=== PATIENT | male | born 1960 | race Caucasian/White ===

== ENCOUNTER 2018-04-28 04:25 | Emergency (ER) | payer BC ==
[~2018-04-28] VITALS: Ht 167.6 cm; Wt 86.4 kg
[2018-04-28 04:29] VITALS: BP 182/90
[2018-04-28] MEDS ORDERED: ACID REFLUX (04:51)
[2018-04-28 05:02] LABS: BASO # 0.1 (0.0-0.2); EOS # 0.2 (0.0-0.7); EOS % 2.9 % (0-4.0); GRAN # 4.4 (1.4-6.5); GRAN % 60.2 % (42.2-75.2); HEMATOCRIT 41.9 % (42.0-52.0); HEMOGLOBIN 14.1 g/dl (13.5-18.0); LYMPH % 27.1 % (20.0-51.0); MEAN CELL VOLUME 86 fl (80.0-100.0); MEAN CORPUSCULAR HEMOGLOBIN 29 pg (27.0-31.0); MEAN CORPUSCULAR HGB CONC 34 g/dl (33.0-37.0); MEAN PLATELET VOLUME 8.8 fl (7.4-10.4); MONO # 0.6 (0.1-0.6); MONO % 8.4 % (1.7-9.3); PLATELET COUNT 246 K/mm3 (130-400); REDCELL DISTRIBUTION WIDTH-CV 12.9 % (11.5-14.5)
[2018-04-28 05:11] LABS: ALANINE AMINOTRANSFERASE 36 U/L (21-72); ALBUMIN 4.1 gm/dL (3.5-5.0); ALKALINE PHOSPHATASE 72 U/L (50-136); ANION GAP 9 mmol/L (7-16); AST,SGOT 33 U/L (15-37); BILIRUBIN,TOTAL 0.7 mg/dL (0.0-1.0); BLOOD UREA NITROGEN 17 mg/dL (9-20); CALCIUM 9.2 mg/dL (8.4-10.2); CARBON DIOXIDE 26 mmol/L (22-30); CHLORIDE 104 mmol/L (98-107); CREATININE, serum 0.97 mg/dL (0.66-1.25); GLUCOSE 135 mg/dL (74-106); LIPASE 70 U/L (23-300); POTASSIUM 3.5 mmol/L (3.4-5.0); SODIUM 139 mmol/L (137-145); TOTAL PROTEIN 7.4 gm/dL (6.4-8.2)
[2018-04-28 05:23] LABS: TROPONIN-I < 0.012 ng/mL (0.000-0.035)
[2018-04-28] MEDS ORDERED: CEPHALEXIN500 M1 PO (05:43)
[2018-04-28] MEDS ORDERED: PREDNISONE20 MG PO (05:43)
[2018-04-28] MEDS ORDERED: CARAFATE 1GM1 G PO (05:43)
[2018-04-28 05:48] VITALS: PULSE 97
== END 2018-04-28 05:54 | disposition home or self-care (01) ==
LOC: COL.ER 04:25
PROVIDERS: Emergency Medicine
DX: R09.89 Other specified symptoms and signs involving the circulatory and respiratory systems (principal); K21.9 Gastro-esophageal reflux disease without esophagitis
CPT/HCPCS: J7512

== ENCOUNTER → 2020-01-27 | Outpatient (CLI) | payer BC ==
[~2020-01-27] MED LIST: ACID REFLUX; CARAFATE 1GM1 G PO; CEPHALEXIN500 M1 PO; PREDNISONE20 MG PO
== END ==
LOC: ZCOL.LAB 13:49
DX: Z20.828 Contact with and (suspected) exposure to other viral communicable diseases (principal)

== ENCOUNTER → 2020-05-04 | Outpatient (CLI) | payer BC | LOC: COL.LAB 12:29 | DX: Z20.822 Contact with and (suspected) exposure to COVID-19 (principal) ==